=== PATIENT | male | born 1945 | race Caucasian/White ===

== ENCOUNTER 2018-01-14 08:46 | Inpatient (IN) | payer MEDICARE, OTHER ==
[~2018-01-14 08:46] MED LIST: Bisacodyl 5 MG Tab PO PRN; EPINEPHrine 1 MG/ML SDV ONE; Lidocaine 1% 2 ML ONE; Lidocaine 1%/Sod Bicarbonate in NS 8.4% 1 ML Syringe IDERM PRN; Magnesium Hydroxide 400 MG/5 ML Susp 30 ML Cup PO PRN; Morphine 2 MG/ML Syringe IVPUSH PRN; Naloxone 0.4 MG/ML SDV IVPUSH PRN; Ropivacaine 0.5% 5 MG/ML 30 ML SDV ONE; Sennosides 8.6 MG Tab PO PRN; Sodium Chloride 0.9% 10 ML Syringe FLUSH PRN
[2018-01-14] MEDS ORDERED: Propofol 200 MG/20 ML SDV ONE (09:03)
[2018-01-14] MEDS ORDERED: Lactated Ringers 1,000 ML ONE ×2 (09:03→14:05)
[2018-01-14] MEDS ORDERED: Rocuronium 50 MG/5 ML Vial ONE (09:03)
[2018-01-14] MEDS ORDERED: ceFAZolin 1 GM Vial ONE ×2 (09:03→10:21)
[2018-01-14] MEDS ORDERED: Dexamethasone 4 MG/ML SDV ONE (09:03)
[2018-01-14] MEDS ORDERED: fentaNYL 100 MCG/2 ML SDV ONE ×4 (09:03→13:16)
[2018-01-14] MEDS ORDERED: Ondansetron 4 MG/2 ML SDV ONE (09:03)
[2018-01-14] MEDS ORDERED: Acetaminophen 325 MG Tab PO ONE (09:45)
[2018-01-14] MEDS ORDERED: Pregabalin 25 MG Cap PO STA (09:47)
[2018-01-14] MEDS ORDERED: oxyCODONE ER 10 MG TAB.ER PO ONE (09:48)
[2018-01-14] MEDS: Lactated Ringers 1,000 ML IV SCH ×2 (10:15→14:52)
[2018-01-14] MEDS ORDERED: Iodine/Sodium Iodide 2% Tincture 30 ML Bottle ONE (10:21)
[2018-01-14] MEDS ORDERED: Bupivacaine 0.25% 30 ML SDV ONE (10:21)
[2018-01-14] MEDS ORDERED: Vancomycin 1 GM SDV ONE ×2 (10:21→11:51)
--- NOTE | 2018-01-14 10:23 | PCM.PREANE ---
Preanesthetic Assessment - Anesthesia/Transfusion/Family Hx Anesthesia History: Prior Anesthesia Without Reaction Family History of Anesthesia Reaction: No Transfusion History: No Prior Transfusion(s) Intubation History: Unknown - Review of Systems General: Weakness, Fatigue Pulmonary: No Symptoms (MARILOU with CPAP machine noted/Quit smoking in 1990.) Cardiovascular: No Symptoms (History of HTN) Gastrointestinal: No Symptoms (Occasional GERD with diet) Neurological: No Symptoms (chronic back pain), Numbness (left medial inner knee since back surgery in 2003.) Other: Reports: None (Chronic Renal Disease stage 3), Easy Bruising, Diabetes ( AM blood sugar at 1021= 134), Sinus Problem (allergic rhinits), Neck Pain (Neck fusion noted with slight tenderness with extension), Depression, Anxiety (PTSD) - Physical Assessment NPO Status Date: 01/13/18 NPO Status Time: 22:00 Pulse: 63 O2 Sat by Pulse Oximetry: 95 Respiratory Rate: 16 Blood Pressure: 139/62 Temperature: 36.9 C Height: 1.75 m Weight: 108.862 kg ASA Class: 3 Mental Status: Alert & Oriented x3 Dentition: Reports: Normal Dentition (poor dentition noted), Missing Tooth/Teeth , Caries Thyro-Mental Finger Breadths: 3 Mouth Opening Finger Breadths: 3 ROM/Head Extension: Limited/Partial Lungs: Clear to Auscultation, Normal Respiratory Effort Cardiovascular: Regular Rate, Regular Rhythm, No Murmurs - Lab Values: Laboratory Last Values MRSA (PCR) Negative 08/15/17 14:24 All lab values reviewed and noted and within acceptable ranges to proceed with scheduled procedure. - Imaging/EKG Impressions: EKG: NSR rate=71, left axis deviation, no significant changes found from comparison of ekg on 08/14/2017 - Allergies Allergies/Adverse Reactions: Allergies Allergy/AdvReac Type Severity Reaction Status Date / Time No Known Allergies Allergy Verified 01/11/18 12:32 - Anesthesia Plan Pre-Op Medication Ordered: None - Acknowledgements Anesthesia Type Planned: General Anesthesia (And left interscalene block under US guidance for post operative pain control requested by Dr. Hong.) Pt an Appropriate Candidate for the Planned Anesthesia: Yes Alternatives and Risks of Anesthesia Discussed w Pt/Guardian: Yes Pt/Guardian Understands and Agrees with Anesthesia Plan: Yes PreAnesthesia Questionnaire HEENT History: Reports: Hard of Hearing, Sinusitis Other HEENT History: open wound of nasal septum, has hearing aids, wont be bringing Cardiovascular History: Reports: High Cholesterol, Hypertension Respiratory History: Reports: Sleep Apnea Other Respiratory History: uses CPAP Gastrointestinal History: Reports: Diverticulosis Other Genitourinary History: CKD III,hypogonadism CLINIC COORDINATOR History: Reports: None Musculoskeletal History: Reports: Back Pain, Chronic Other Musculoskeletal History: shoulder pain, joinht pain, onychia and paronychia of toe, spondlydosis of lumbar sacral area, 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 Psychiatric History: Reports: Anxiety, Depression, PTSD Endocrine/Metabolic History: Reports: Diabetes, Type II, Obesity/BMI 30+ Other Endocrine/Metabolic History: hypogonadism Other Hematologic History: hyperkalemia Immunologic History: Reports: None Oncologic (Cancer) History: Reports: Basal Cell Carcinoma, Squamous Cell Carcinoma Other Dermatologic History: actinic keratosis - Past Surgical History HEENT Surgical History: Reports: Cataract Surgery, Naso-Sinus Surgery Cardiovascular Surgical History: Reports: None Respiratory Surgical History: Reports: None GI Surgical History: Reports: Appendectomy, Colonoscopy Female Surgical History: Reports: None Male Surgical History: Reports: None Endocrine Surgical History: Reports: None Neurological Surgical History: Reports: C-Spine, Lumbar Spine Musculoskeletal Surgical History: Reports: Knee Replacement - SUBSTANCE USE Smoking Status *Q: Former Smoker Second Hand Smoke Exposure: No Recreational Drug Use History: No - HOME MEDS Home Medications: Home Meds Doxazosin [Cardura] 2 mg PO BEDTIME 01/11/18 [History] Escitalopram [Lexapro] 10 mg PO DAILY 01/11/18 [History] Multivitamin [Flintstones] 1 tab PO DAILY 01/11/18 [History] Rosuvastatin Calcium [Crestor] 20 mg PO DAILY 01/11/18 [History] glipiZIDE [Glipizide Xl] 2.5 mg PO BID 01/11/18 [History] - CURRENT (IN HOUSE) MEDS Current Meds: Current Medications Aspirin (Ecotrin) 325 mg PO BID RONNIE Bisacodyl (Dulcolax) 5 mg PO DAILY PRN PRN Reason: Constipation Cyclobenzaprine HCl (Flexeril) 10 mg PO TID PRN PRN Reason: Spasms Docusate Sodium (Colace) 100 mg PO BID RONNIE Lactated Ringer's (Ringers, Lactated) 1,000 mls @ 125 mls/hr IV ASDIRECTED [facility] Stop: 01/14/18 23:00 Cefazolin Sodium/Dextrose 2 gm (/ Premix) 50 mls @ 100 mls/hr IV Q8H [facility] Stop: 01/14/18 23:29 Lidocaine/Sodium Bicarbonate (Buffered Lidocaine 1% In Ns 8.4%) 0.25 ml IDERM ONETIME PRN PRN Reason: Prior to IV Start Stop: 01/14/18 18:00 Magnesium Hydroxide (Milk Of Magnesia) 30 ml PO BID PRN PRN Reason: Constipation Morphine Sulfate (Morphine) 2 mg IVPUSH Q2H PRN PRN Reason: Breakthrough Pain Naloxone HCl (Narcan) 0.1 mg IVPUSH Q5M PRN PRN Reason: Oversedation Oxycodone/Acetaminophen (Percocet 325-5 Mg) 1 - 2 tab PO Q4H PRN PRN Reason: Pain Senna (Senna) 8.6 mg PO BID PRN PRN Reason: Constipation Sodium Chloride (Saline Flush) 10 ml FLUSH ASDIRECTED PRN PRN Reason: Keep Vein Open Stop: 01/14/18 18:00 Discontinued Medications Acetaminophen (Tylenol) 975 mg PO NOW ONE Stop: 01/14/18 09:46 Cefazolin Sodium (Ancef) Confirm Administered Dose 1 gm .ROUTE .STK-MED ONE Stop: 01/14/18 09:04 Dexamethasone (Dexamethasone) Confirm Administered Dose 4 mg .ROUTE .STK-MED ONE Stop: 01/14/18 09:04 Epinephrine HCl (Adrenalin) Confirm Administered Dose 1 mg .ROUTE .STK-MED ONE Stop: 01/14/18 07:11 Fentanyl (Sublimaze) Confirm Administered Dose 100 mcg .ROUTE .STK-MED ONE Stop: 01/14/18 09:04 Lidocaine HCl (Xylocaine-Mpf 1%) Confirm Administered Dose 2 mls @ as directed .ROUTE .STK-MED ONE Stop: 01/14/18 07:11 Lactated Ringer's (Ringers, Lactated) Confirm Administered Dose 1,000 mls @ as directed .ROUTE .STK-MED ONE Stop: 01/14/18 09:04 Ondansetron HCl (Zofran) Confirm Administered Dose 4 mg .ROUTE .STK-MED ONE Stop: 01/14/18 09:04 Oxycodone HCl (Oxycontin) 10 mg PO ONETIME ONE Stop: 01/14/18 09:49 Pregabalin (Lyrica) 50 mg PO NOW STA Stop: 01/14/18 09:48 Propofol (Diprivan 20 Ml) Confirm Administered Dose 200 mg .ROUTE .STK-MED ONE Stop: 01/14/18 09:04 Rocuronium [place] (Zemuron) Confirm Administered Dose 50 mg .ROUTE .STK-MED ONE Stop: 01/14/18 09:04 Ropivacaine (Naropin 0.5%) Confirm Administered Dose 30 ml .ROUTE .STK-MED ONE Stop: 01/14/18 07:11
[2018-01-14] MEDS ORDERED: Midazolam 1 MG/ML 2 ML SDV ONE (10:32)
[2018-01-14] MEDS ORDERED: Sodium Chloride 0.9% 0 ML ONE (11:52)
--- NOTE | 2018-01-14 11:52 | PCM.SN ---
- Free Text/Narrative Note: Anesthesia Note: (Left Interscalene Block Note) Date: 01/14/2018 Time Out: 1045 Start: 1045 Stop: 1110 Surgical Procedure: Left Total Shoulder Arthroplasty versus Reverse Total Shoulder Arthroplasty Diagnosis Left shoulder osteoarthritis Current Procedure: Left interscalene block under US guidance for postoperative pain control requested by Dr. Hong. Patient chart reviewed, risk/benefits discussed with patient, consent obtained. Patient positioned supine, monitors/alarms on, oxygen placed via nasal cannula at 2 LPM. IV sedation administered: Versed 2mg IV @ 1045, Fentanyl 50mcg IV @ 1045 Left shoulder prepped with two chloropreps. Sterile drapes placed with aseptic technique noted. Under US guidance, left subclavian artery visualized along with the left brachial plexus. Plexus followed up to C6 cricoid level, and area localized with 2mls of 1% lidocaine. 22gauge 2 inch stimiplex needle advanced under US with 0.6mV with stimulation of biceps noted. Good stimulation noted with decreased voltage and absent at 0.2mVs. 1ml of Normal Saline injected with loss of stimulation noted to confirm needle not placed intraneurally. Incremental dosing of 5mls with negative aspiration noted prior to each injection of 0.5% ropivacaine with 1:200,000 epinephrine. Total volume=30mls. Please refer to nurses noted for vital signs. Samantha Archuleta CRNA
[2018-01-14] MEDS ORDERED: Ondansetron 4 MG/2 ML SDV IVPUSH PRN ×2 (14:12→18:40)
[2018-01-14] MEDS ORDERED: fentaNYL 100 MCG/2 ML SDV IVPUSH PRN (14:12)
--- NOTE | 2018-01-14 14:12 | PCM.POSTAN ---
POST ANESTHESIA ASSESSMENT - MENTAL STATUS Mental Status: Alert, Oriented - VITAL SIGNS Pulse Rate: 111 SaO2: 94 Resp Rate: 16 Blood Pressure: 131/59 Temperature: 36.3 C - RESPIRATORY Respiratory Status: Respiratory Rate WNL, Airway Patent, O2 Saturation Stable, Supplemental Oxygen - CARDIOVASCULAR CV Status: Pulse Rate WNL, Blood Pressure Stable - GASTROINTESTINAL GI Status: No Symptoms - PAIN Pain Score: 0 - POST OP HYDRATION Hydration Status: Adequate & Stable
--- NOTE | 2018-01-14 15:15 | CR ---
Left shoulder: Five fluoroscopic spot views were obtained of the left shoulder utilizing C-arm device. Comparison: No prior left shoulder exam. Left shoulder prosthesis is seen. Components are aligned. Underlying bony structures are grossly intact. Fluoroscopy time given as 7.1 seconds. Impression: 1. Procedural study showing placement of left shoulder prosthesis. Diagnostic code #2
--- NOTE | 2018-01-14 15:15 | CR ---
Left shoulder: Single portable view of the left shoulder was obtained. Comparison: Prior intraoperative study performed on the same day. Left shoulder prosthesis is seen. Components are aligned. Soft tissue air is noted from the surgical procedure. Underlying bony structures are intact. Previous cervical spine surgery is noted. Impression: 1. Recently placed left shoulder prosthesis. Incidental previous cervical spine surgery. 2. No acute bony abnormality is seen. Diagnostic code #2
[2018-01-14] MEDS ORDERED: Ondansetron 4 MG in Sodium Chloride 0.9% 50 ML IV PRN (15:40)
[2018-01-14] MEDS: ceFAZolin 2 GM in Premix Bag 1 BAG IV SCH ×2 (17:25→17:32)
[2018-01-14] MEDS ORDERED: Doxazosin 2 MG Tab PO SCH (21:00)
[2018-01-14] MEDS: Docusate Sodium 100 MG Cap PO SCH (21:19)
[2018-01-14] MEDS: glipiZIDE 2.5 MG Tab.ER PO SCH (21:19)
[2018-01-14] MEDS: Acetaminophen/oxyCODONE 325-5 MG Tab PO PRN (21:20)
[2018-01-14] MEDS: Cyclobenzaprine 10 MG Tab PO PRN (23:28)
[2018-01-15] MEDS ORDERED: Ketorolac 15 MG/ML SDV IVPUSH ONE (00:21)
[2018-01-15] MEDS: oxyCODONE 5 MG Tab PO PRN ×3 (00:33→14:13)
[2018-01-15] MEDS: ceFAZolin 2 GM in Premix Bag 1 BAG IV SCH ×2 (01:36→09:33)
[2018-01-15] MEDS: Acetaminophen/oxyCODONE 325-5 MG Tab PO PRN ×2 (06:02→10:14)
--- NOTE | 2018-01-15 06:42 | PCM.CONS ---
H&P History of Present Illness - General Date of Service: 01/15/18 Admit Problem/Dx: Admission Diagnosis/Problem Admission Diagnosis/Problem Osteoarthritis of shoulder Source of Information: Patient, Old Records, Provider, RN History Limitations: Reports: No Limitations - History of Present Illness Initial Comments - Free Text/Narative: Abbi Salazar (Vinnie) is a 72 yo male patient of Dr. Hong who is post- operative day 1 of left reverse total shoulder arthroplasty. Hospital medicine was consulted for post-operative medical care. At this time he is resting comfortably in bed. Pain is controlled and he just received a pain pill. He denies any chest pain, shortness of breath, palpitations, nausea, or vomiting. He carries a history of: HLD, HTN, Sleep apnea on home CPAP, CKD stage III, hypogonadism, chronic back pain, DJD L5 to S1, chronic neck pain, anxiety, depression, PTSD, Type II DM, Obesity, basal and squamous cell carcinoma. He is a former smoker. He is a full code. His [facility] care [facility]. Left Arm Pain Score (Numeric/FACES): 6 - Related Data Allergies/Adverse Reactions: Allergies Allergy/AdvReac Type Severity Reaction Status Date / Time No Known Allergies Allergy Verified 01/11/18 12:32 Home Medications: Home Meds Doxazosin [Cardura] 2 mg PO BEDTIME 01/11/18 [History] Escitalopram [Lexapro] 10 mg PO DAILY 01/11/18 [History] Rosuvastatin Calcium [Crestor] 20 mg PO DAILY 01/11/18 [History] glipiZIDE [Glipizide Xl] 2.5 mg PO BID 01/11/18 [History] Acetaminophen/oxyCODONE [Percocet 325-5 MG] 1 - 2 tab PO Q6H PRN #60 tablet 06/25 [Rx] Aspirin [Ecotrin] 325 mg PO BID #84 tab.ec 01/14/18 [Rx] Bisacodyl [Dulcolax] 5 mg PO DAILY PRN tablet 01/14/18 [Rx] Cyclobenzaprine [Flexeril] 10 mg PO TID PRN #40 tablet 01/14/18 [Rx] Docusate Sodium [Colace] 100 mg PO BID cap 01/14/18 [Rx] Magnesium Hydroxide [Milk of Magnesia] 30 ml PO BID PRN cup 01/14/18 [Rx] Sennosides [Senna] 8.6 mg PO BID PRN tablet 01/14/18 [Rx] oxyCODONE 5 mg PO Q6H PRN #20 tablet 01/15/18 [Rx] Past Medical History HEENT History: Reports: Hard of Hearing, Sinusitis Other HEENT History: open wound of nasal septum, has hearing aids, not here Cardiovascular History: Reports: High Cholesterol, Hypertension Respiratory History: Reports: Sleep Apnea Other Respiratory History: uses CPAP Gastrointestinal History: Reports: Diverticulosis Other Genitourinary History: CKD III,hypogonadism RAISE MINER History: Reports: None Musculoskeletal History: Reports: Back Pain, Chronic Other Musculoskeletal History: shoulder pain, joinht pain, onychia and paronychia of toe, spondlydosis of lumbar sacral area, 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 Neurological History: Reports: Neuropathy, Diabetic Psychiatric History: Reports: Anxiety, Depression, PTSD Endocrine/Metabolic History: Reports: Diabetes, Type II, Obesity/BMI 30+ Other Endocrine/Metabolic History: hypogonadism Hematologic History: Reports: Other (See Below) Other Hematologic History: hyperkalemia Immunologic History: Reports: None Oncologic (Cancer) History: Reports: Basal Cell Carcinoma, Squamous Cell Carcinoma Dermatologic History: Reports: None Other Dermatologic History: actinic keratosis - Past Surgical History HEENT Surgical History: Reports: Cataract Surgery, Naso-Sinus Surgery Cardiovascular Surgical History: Reports: None Respiratory Surgical History: Reports: None GI Surgical History: Reports: Appendectomy, Colonoscopy Male Surgical History: Reports: None Endocrine Surgical History: Reports: None Neurological Surgical History: Reports: C-Spine, Lumbar Spine Musculoskeletal Surgical History: Reports: Knee Replacement Other Musculoskeletal Surgeries/Procedures:: right knee replaced and left knee replaced twice Social & Family History - Family History Cardiac: Reports: MD, Other (See Below) Other Cardiac Family History: Fluid around heart - siblings Neurological: Reports: Alzheimers Disease - Tobacco Use Smoking Status *Q: Former Smoker Years of Tobacco use: 35 Used Tobacco, but Quit: Yes Month/Year Tobacco Last Used: 1990 Second Hand Smoke Exposure: No - Caffeine Use Caffeine Use: Reports: Coffee, Soda, Tea - Recreational Drug Use Recreational Drug Use: No Drug Use in Last 12 Months: No H&P Review of Systems - Review of Systems: Review Of Systems: See Below General: Reports: No Symptoms HEENT: Reports: No Symptoms Pulmonary: Reports: No Symptoms Cardiovascular: Reports: No Symptoms Gastrointestinal: Reports: No Symptoms Genitourinary: Reports: No Symptoms Musculoskeletal: Reports: Arm Pain, Joint Pain Skin: Reports: No Symptoms Psychiatric: Reports: No Symptoms Neurological: Reports: No Symptoms Hematologic/Lymphatic: Reports: No Symptoms Immunologic: Reports: No Symptoms Exam - Exam Exam: See Below - Vital Signs Vital Signs: Last Vital Signs Temp 98.1 F 01/15/18 05:02 Pulse 85 01/15/18 05:02 Resp 16 01/15/18 05:02 BP 108/64 01/15/18 05:02 Pulse Ox 93 L 01/15/18 05:02 Weight: 240 lb - Exam Quality Assessment: DVT Prophylaxis General: Alert, Oriented, Cooperative HEENT: Conjunctiva Clear, EACs Clear, EOMI, Hearing Intact, Mucosa Moist & [place] , Nares Patent, Posterior Pharynx Clear, PERRLA Neck: Supple, Trachea Midline Lungs: Clear to Auscultation, Normal Respiratory Effort Cardiovascular: Regular Rate, Regular Rhythm GI/Abdominal Exam: Normal Bowel Sounds, Soft, Non-Tender, No Organomegaly, No Distention, No Abnormal Bruit, No Mass, Pelvis Stable (Male) Exam: Deferred Rectal (Males) Exam: Deferred Back Exam: Normal Inspection, Full Range of Motion Extremities: No Pedal Edema, Normal Capillary Refill, Limited Range of Motion, Other (Immobilizer in place on left shoulder. Badage in place - dry and intact. Cooling pack in place ) Peripheral Pulses: 1+: Posterior Tibial (L), Posterior Tibial (R), Dorsalis Pedis (L), Dorsalis Pedis (R), 2+: Radial (L), Radial (R) Skin: Warm, Dry, Intact Neurological: Cranial Nerves Intact (grossly) Neuro Extensive - Mental Status: Alert, Oriented x3, Normal Mood/Affect, Normal Cognition, Memory Intact Psychiatric: Alert, Normal Affect, Normal Mood - Patient Data Lab Results Last 24 hrs: Laboratory Results - last 24 hr 01/14/18 01/14/18 01/14/18 Range/Units 10:21 10:24 10:24 WBC (4.23-9.07) K/mm3 RBC (4.63-6.08) M/mm3 Hgb (13.7-17.5) gm/L Hct (40.1-51.0) % MCV (79.0-92.2) fl MCH (25.7-32.2) pg MCHC (32.2-35.5) g/dl RDW Std Deviation (35.1-43.9) fL Plt Count (163-337) K/mm3 MPV (9.4-12.3) fl PT 10.8 (9.5-12.1) SECONDS INR 0.99 APTT 33 H (24-31) SECONDS POC Glucose 134 H (80-115) mg/dL 01/15/18 Range/Units 05:08 WBC 7.26 (4.23-9.07) K/mm3 RBC 4.23 L (4.63-6.08) M/mm3 Hgb 12.6 L (13.7-17.5) gm/L Hct 40.0 L (40.1-51.0) % MCV 94.6 H (79.0-92.2) fl MCH 29.8 (25.7-32.2) pg MCHC 31.5 L (32.2-35.5) g/dl RDW Std Deviation 48.2 H (35.1-43.9) fL Plt Count 177 (163-337) K/mm3 MPV 11.2 (9.4-12.3) fl PT (9.5-12.1) SECONDS INR APTT (24-31) SECONDS POC Glucose (80-115) mg/dL Result Diagrams: 01/15/18 05:08 01/15/18 05:08 Consult PN Assessment/Plan POD#: 1 Procedures: Procedures C-REACTIVE PROTEIN (02/01/16) CHEST X-RAY 2VW FRONTAL&LATL (08/07/16) COMPLETE CBC W/AUTO DIFF WBC (08/07/16) COMPREHEN METABOLIC PANEL (08/07/16) EXTREMITY STUDY (12/28/15) GAIT TRAINING THERAPY (08/07/16) GLUCOSE BLOOD TEST (08/07/16) MEASURE BLOOD OXYGEN LEVEL (08/07/16) METABOLIC PANEL TOTAL CA (08/07/16) MR-STAPH DNA AMP PROBE (12/28/17) MRI JNT OF LWR EXTRE W/O DYE (06/20/17) OT EVALUATION (08/07/16) PT EVALUATION (08/07/16) RBC SED RATE AUTOMATED (02/01/16) ROUTINE VENIPUNCTURE (08/07/16) SELF CARE MNGMENT TRAINING (08/07/16) THERAPEUTIC EXERCISES (08/07/16) THROMBOPLASTIN TIME PARTIAL (08/02/16) URINALYSIS AUTO W/SCOPE (08/07/16) URINE CULTURE/COLONY COUNT (08/07/16) X-RAY EXAM OF KNEE 1 OR 2 (08/07/16) (1) S/p reverse total shoulder arthroplasty SNOMED Code(s): 842133952, 927551851 Code(s): Z96.619 - PRESENCE OF UNSPECIFIED ARTIFICIAL SHOULDER JOINT Priority: High Current Visit: Yes Qualifiers: Laterality: left Qualified Code(s): Z96.612 - Presence of left artificial shoulder joint (2) Osteoarthritis SNOMED Code(s): 491023173 Code(s): M19.90 - UNSPECIFIED OSTEOARTHRITIS, UNSPECIFIED SITE Priority: High Current Visit: Yes Qualifiers: Osteoarthritis location: shoulder Osteoarthritis type: primary Laterality : left Qualified Code(s): M19.012 - Primary osteoarthritis, left shoulder (3) Sleep apnea treated with nocturnal BiPAP SNOMED Code(s): 51098852 Code(s): G47.33 - OBSTRUCTIVE SLEEP APNEA (ADULT) (PEDIATRIC) Priority: Medium Current Visit: Yes (4) HLD (hyperlipidemia) SNOMED Code(s): 21667606 Code(s): E78.5 - HYPERLIPIDEMIA, UNSPECIFIED Priority: Low Current Visit : No Qualifiers: Hyperlipidemia type: unspecified Qualified Code(s): E78.5 - Hyperlipidemia , unspecified (5) HTN (hypertension) SNOMED Code(s): 43269374 Code(s): I10 - ESSENTIAL (PRIMARY) HYPERTENSION Priority: Medium Current Visit: No Qualifiers: Hypertension type: unspecified Qualified Code(s): I10 - Essential (primary ) hypertension (6) Chronic back pain SNOMED Code(s): 629743791 Code(s): M54.9 - DORSALGIA, UNSPECIFIED; G89.29 - OTHER CHRONIC PAIN Priority: Low Current Visit: No Qualifiers: Back pain location: back pain in unspecified location Back pain laterality : unspecified Qualified Code(s): M54.9 - Dorsalgia, unspecified; G89.29 - Other chronic pain (7) Anxiety SNOMED Code(s): 01956988 Code(s): F41.9 - ANXIETY DISORDER, UNSPECIFIED Priority: Low Current Visit: No (8) Other specified depressive episodes SNOMED Code(s): 17601444 Code(s): F32.89 - OTHER SPECIFIED DEPRESSIVE EPISODES Priority: Low Current Visit: No (9) PTSD (post-traumatic stress disorder) SNOMED Code(s): 73359805 Code(s): F43.10 - POST-TRAUMATIC STRESS DISORDER, UNSPECIFIED Priority: Low Current Visit: No (10) CKD (chronic kidney disease) stage 3, GFR 30-59 ml/min SNOMED Code(s): 381905498 Code(s): N18.3 - CHRONIC KIDNEY DISEASE, STAGE 3 (MODERATE) Priority: Medium Current Visit: No (11) MARILOU (obstructive sleep apnea) SNOMED Code(s): 48219636 Code(s): G47.33 - OBSTRUCTIVE SLEEP APNEA (ADULT) (PEDIATRIC) Priority: Medium Current Visit: No Problem List Initiated/Reviewed/Updated: Yes Plan: I/P: Acute: S/P left total reveres total shoulder arthroplasty - post-operative day 1 -DVT prophylaxis and pain management per primary care team -PT/OT -IS/RT -Monitor oxygen saturation -Titrate oxygen as needed -Vital signs stable -Monitor labs -Pre-operative Hgb was 14.2, now 12.6 -Pre-operative GFR wsa 50, now 40 -Pre-operative A1C was 7 Osteoarthritis of left shoulder -Pain management per primary care team Chronic: HLD HTN Sleep apnea on home CPAP CKD stage III hypogonadism chronic back pain DJD L5 to S1 chronic neck pain anxiety depression PTSD Type II DM Obesity Basal and squamous cell carcinoma Plan: CM for discharge planning GI prophylaxis Home medications as indicated Other orders as listed above Routine AM labs He is a full code. His PCP is Dr. Sinclair with the [facility] He is doing well today. He has been working with PT/OT and doing well. He has urinated. Pain is controlled. From a hospitalist standpoint he is doing well and clear for discharge pending primary care team approval. Thank you for allowing us to participate in the care of this patient!! Requesting Provider: Dr. Hong Date Consult Requested: 01/14/18 Reason for Consult: Post-operative medical care Patient History Reviewed: Yes Admission H&P Reviewed: Yes
[2018-01-15] MEDS: Docusate Sodium 100 MG Cap PO SCH (08:47)
[2018-01-15] MEDS: glipiZIDE 2.5 MG Tab.ER PO SCH (08:47)
[2018-01-15] MEDS ORDERED: Citalopram 20 MG Tab PO SCH (09:00)
[2018-01-15] MEDS ORDERED: Aspirin 325 MG Tab.EC PO SCH (09:00)
[2018-01-15] MEDS ORDERED: Rosuvastatin 10 MG Tab PO SCH (09:00)
[2018-01-15] MEDS: Cyclobenzaprine 10 MG Tab PO PRN (09:32)
--- NOTE | 2018-01-15 10:15 | PCM48HPAN ---
Post Anesthesia Note - EVALUATION WITHIN 48HRS OF ANESTHETIC Vital Signs in Normal Range: Yes Patient Participated in Evaluation: Yes Respiratory Function Stable: Yes Airway Patent: Yes Cardiovascular Function Stable: Yes Hydration Status Stable: Yes Pain Control Satisfactory: Yes (States had a lot of pain last night. Better today) Nausea and Vomiting Control Satisfactory: Yes (Some nausea last night. None today. No emesis) Mental Status Recovered: Yes Pulse Rate: 92 Resp Rate: 16 Temperature: 98.4 F Blood Pressure: 129/69
[2018-01-15 16:37] VITALS: BP 134/70
--- NOTE | 2018-01-16 10:51 | PCM.SURGPN ---
- General Info Date of Service: 01/15/18 POD#: 1 Functional Status: Reports: Pain Controlled, Tolerating Diet, Ambulating, Urinating, Incentive Spirometry - Review of Systems Musculoskeletal: Reports: Other (The pt has met inpatient therapy goals.) - Patient Data Vitals - Most Recent: Last Vital Signs Temp 98.8 F 01/15/18 13:08 Pulse 90 01/15/18 14:12 Resp 14 01/15/18 13:08 BP 134/70 01/15/18 14:12 Pulse Ox 91 L 01/15/18 14:12 Weight - Most Recent: 240 lb Med Orders - Current: Current Medications Discontinued Medications Acetaminophen (Tylenol) 975 mg PO NOW ONE Stop: 01/14/18 09:46 Last Admin: 01/14/18 10:48 Dose: 975 mg Aspirin (Ecotrin) 325 mg PO BID [facility] Last Admin: 01/15/18 08:46 Dose: 325 mg Bisacodyl (Dulcolax) 5 mg PO DAILY PRN PRN Reason: Constipation Bupivacaine HCl (Marcaine 0.25%) Confirm Administered Dose 30 ml .ROUTE .STK- MED ONE Stop: 01/14/18 10:22 Last Admin: 01/14/18 13:47 Dose: 16 ml Cefazolin Sodium (Ancef) Confirm Administered Dose 1 gm .ROUTE .STK-MED ONE Stop: 01/14/18 09:04 Cefazolin Sodium (Ancef) Confirm Administered Dose 2 gm .ROUTE .STK-MED ONE Stop: 01/14/18 10:22 Last Admin: 01/14/18 13:29 Dose: 2 gm Citalopram Hydrobromide (Celexa) 20 mg PO DAILY [facility] Last Admin: 01/15/18 08:47 Dose: 20 mg Cyclobenzaprine HCl (Flexeril) 10 mg PO TID PRN PRN Reason: Spasms Last Admin: 01/15/18 09:32 Dose: 10 mg Dexamethasone (Dexamethasone) Confirm Administered Dose 4 mg .ROUTE .STK-MED ONE Stop: 01/14/18 09:04 Docusate Sodium (Colace) 100 mg PO BID [facility] Last Admin: 01/15/18 08:47 Dose: 100 mg Doxazosin Mesylate (Cardura) 2 mg PO BEDTIME [facility] Last Admin: 01/14/18 21:19 Dose: 2 mg Epinephrine HCl (Adrenalin) Confirm Administered Dose 1 mg .ROUTE .STK-MED ONE Stop: 01/14/18 07:11 Fentanyl (Sublimaze) Confirm Administered Dose 100 mcg .ROUTE .STK-MED ONE Stop: 01/14/18 09:04 Fentanyl (Sublimaze) Confirm Administered Dose 100 mcg .ROUTE .STK-MED ONE Stop: 01/14/18 10:33 Fentanyl (Sublimaze) Confirm Administered Dose 100 mcg .ROUTE .STK-MED ONE Stop: 01/14/18 13:03 Fentanyl (Sublimaze) Confirm Administered Dose 100 mcg .ROUTE .STK-MED ONE Stop: 01/14/18 13:17 Fentanyl (Sublimaze) 50 mcg IVPUSH Q5M PRN PRN Reason: pain Stop: 01/14/18 16:00 Glipizide (Glucotrol Xl) 2.5 mg PO BID [facility] Last Admin: 01/15/18 08:47 Dose: 2.5 mg Lactated Ringer's (Ringers, Lactated) 1,000 mls @ 125 mls/hr IV ASDIRECTED [facility] Stop: 01/14/18 23:00 Last Admin: 01/14/18 14:52 Dose: 125 mls/hr Cefazolin Sodium/Dextrose 2 gm (/ Premix) 50 mls @ 100 mls/hr IV Q8H [facility] Stop: 01/15/18 10:59 Last Admin: 01/15/18 09:33 Dose: 100 mls/hr Lidocaine HCl (Xylocaine-Mpf 1%) Confirm Administered Dose 2 mls @ as directed .ROUTE .ST-MED ONE Stop: 01/14/18 07:11 Lactated Ringer's (Ringers, Lactated) Confirm Administered Dose 1,000 mls @ as directed .ROUTE .ST-MED ONE Stop: 01/14/18 09:04 Sodium Chloride (Normal Saline) Confirm Administered Dose 0 mls @ as directed .ROUTE .STK-MED ONE Stop: 01/14/18 11:53 Lactated Ringer's (Ringers, Lactated) Confirm Administered Dose 1,000 mls @ as directed .ROUTE .STK-MED ONE Stop: 01/14/18 14:06 Ondansetron HCl 4 mg/ Sodium (Chloride) 52 mls @ 100 mls/hr IV Q6H PRN PRN Reason: Nausea Iodine (Iodine 2% Mild Tincture) Confirm Administered Dose 30 ml .ROUTE .STK- MED ONE Stop: 01/14/18 10:22 Last Admin: 01/14/18 13:26 Dose: 18 ml Ketorolac Tromethamine (Toradol) 15 mg IVPUSH ONETIME ONE Stop: 01/15/18 00:22 Last Admin: 01/15/18 00:32 Dose: 15 mg Lidocaine/Sodium Bicarbonate (Buffered Lidocaine 1% In Ns 8.4%) 0.25 ml IDERM ONETIME PRN PRN Reason: Prior to IV Start Stop: 01/14/18 18:00 Last Admin: 01/14/18 10:14 Dose: 0.25 ml Magnesium Hydroxide (Milk Of Magnesia) 30 ml PO BID PRN PRN Reason: Constipation Midazolam HCl (Versed 1 Mg/Ml) Confirm Administered Dose 2 mg .ROUTE .STK-MED ONE Stop: 01/14/18 10:33 Morphine Sulfate (Morphine) 2 mg IVPUSH Q2H PRN PRN Reason: Breakthrough Pain Last Admin: 01/14/18 23:28 Dose: 2 mg Naloxone HCl (Narcan) 0.1 mg IVPUSH Q5M PRN PRN Reason: Oversedation Ondansetron HCl (Zofran) Confirm Administered Dose 4 mg .ROUTE .STK-MED ONE Stop: 01/14/18 09:04 Ondansetron HCl (Zofran) 4 mg IVPUSH ONETIME PRN PRN Reason: Nausea/Vomiting Stop: 01/14/18 18:00 Ondansetron HCl (Zofran) 4 mg IVPUSH Q6H PRN PRN Reason: NAUSEA Last Admin: 01/15/18 00:16 Dose: 4 mg Oxycodone HCl (Oxycontin) 10 mg PO ONETIME ONE Stop: 01/14/18 09:49 Last Admin: 01/14/18 10:48 Dose: 10 mg Oxycodone HCl (Oxycodone) 5 mg PO Q6H PRN PRN Reason: Pain (severe 7-10) Last Admin: 01/15/18 14:13 Dose: 5 mg Oxycodone/Acetaminophen (Percocet 325-5 Mg) 1 - 2 tab PO Q4H PRN PRN Reason: Pain Last Admin: 01/15/18 10:14 Dose: 2 tab Pregabalin (Lyrica) 50 mg PO NOW STA Stop: 01/14/18 09:48 Last Admin: 01/14/18 10:48 Dose: 50 mg Propofol (Diprivan 20 Ml) Confirm Administered Dose 200 mg .ROUTE .STK-MED ONE Stop: 01/14/18 09:04 Rocuronium [place] (Zemuron) Confirm Administered Dose 50 mg .ROUTE .STK-MED ONE Stop: 01/14/18 09:04 Ropivacaine (Naropin 0.5%) Confirm Administered Dose 30 ml .ROUTE .STK-MED ONE Stop: 01/14/18 07:11 Rosuvastatin Calcium (Crestor) 20 mg PO DAILY [facility] Last Admin: 01/15/18 08:47 Dose: 20 mg Senna (Senna) 8.6 mg PO BID PRN PRN Reason: Constipation Sodium Chloride (Saline Flush) 10 ml FLUSH ASDIRECTED PRN PRN Reason: Keep Vein Open Stop: 01/14/18 18:00 Tranexamic Acid (Cyklokapron) Confirm Administered Dose 1,000 mg .ROUTE .STK- MED ONE Stop: 01/14/18 10:21 Last Admin: 01/14/18 13:25 Dose: 1,000 mg Vancomycin HCl (Vancomycin) Confirm Administered Dose 1 gm .ROUTE .STK-MED ONE Stop: 01/14/18 10:22 Last Admin: 01/14/18 13:45 Dose: 1 gm Vancomycin HCl (Vancomycin) Confirm Administered Dose 1 gm .ROUTE .STK-MED ONE Stop: 01/14/18 11:52 - Exam Wound/Incisions: Dressing Dry and Intact General: Alert, Cooperative, No Acute Distress Lungs: Normal Respiratory Effort Extremities: Other (NVS intact for BUE. Manuel's negative BLE.) - Problem List Review Problem List Initiated/Reviewed/Updated: Yes - Assessment Assessment (Free Text/Narrative):: POD#1 - left reverse TSA - Plan Plan (Free Text/Narrative):: 1. Discharge to home today. 2. Outpatient therapy. 3. 325mg ASA BID, TEDs, frequent mobility. 4. Hgb 12.6. f/u with PCP re: renal function - creat 1.7 today. The pt's case was discussed with Dr. Hong.
--- NOTE | 2018-01-16 10:53 | PCM.DCSUM1 ---
Discharge Summary - Hospital Course Brief History: Abbi is a 72 yo male who underwent left reverse TSA with Dr. Hong on 01-14-2018. The procedure was completed under general anesthesia with regional block. The pt tolerated the procedure well and was admitted to the Medical-Surgical Unit. Medical management was provided by the Hospitalist service. The pt's Hospital course was uneventful. The pt's Hgb on POD#1 was 12.6. On POD#1, 325mg ASA BID was initiated for VTE prophylaxis. SCDs and TEDs were also ordered. A Mepilex dressing was placed at the incision site at the time of surgery and remained clean and dry. The pt participated in P.T. and O.T. and progressed well. On POD#1, the pt was deemed appropriate to discharge to home with his . - Discharge Data Discharge Date: 01/15/18 Discharge Disposition: Home, Self-Care 01 Condition: Good - Patient Summary/Data Consults: Consultations 01/14/18 06:56 OT Evaluation and Treatment [CONS] Routine PT Evaluation and Treatment [CONS] Routine 01/14/18 06:57 Consult to Physician [CONS] Routine - Patient Instructions Diet: Usual Diet as Tolerated Activity: Apply Ice, As Tolerated, Elevate Extremity Driving: Do Not Drive Showering/Bathing: May Shower Wound/Incision Care: Keep Operative Site/Wound Site Clean and Dry, Do NOT Change Dressing Notify Provider of: Fever, Increased Pain, Swelling and Redness, Drainage, Nausea and/or Vomiting Other/Special Instructions: Please get up and moving around every hour while awake. This helps to prevent blood clots. Please take 325mg aspirin twice daily - this also helps to prevent blood clots. The medication is being used for blood clot prevention and not for pain control, so please use the medication twice daily as directed. Please wear the JOSE hose during the day and you may remove them at night. Please schedule for therapy. Complete the therapy exercises and stretches that were instructed in the Hospital. Please use the pain medication and muscle relaxant as needed. The medication may cause drowsiness and/or constipation. You could use a stool softener like docusate sodium or Colace 100mg twice daily and/or a laxative like Miralax daily for constipation. Contact your primary care provider for further instructions if you are constipated. Try to wean from use of the pain medication as soon as able. Use the incentive spirometer often. Please place ice to the shoulder often. Please elevate the limb to decrease swelling. Wear the immobilizer as directed. Keep the Mepilex dressing in place until follow- up. Please notify the Clinic if the dressing is saturated or rolls down. Please monitor your blood sugars very closely and notify your primary care provider with abnormal values. Please schedule an appointment with your Primary Care Provider to ensure that your kidney tests are improving. You value was elevated a bit during your Hospital stay. Please call [phone] with questions or concerns. - Discharge Plan Prescriptions/Med Rec: Acetaminophen/oxyCODONE [Percocet 325-5 MG] 1 - 2 tab PO Q6H PRN #60 tablet PRN Reason: Pain Aspirin [Ecotrin] 325 mg PO BID #84 tab.ec Cyclobenzaprine [Flexeril] 10 mg PO TID PRN #40 tablet PRN Reason: Spasms oxyCODONE 5 mg PO Q6H PRN #20 tablet PRN Reason: Pain Home Medications: Home Meds Doxazosin [Cardura] 2 mg PO BEDTIME 01/11/18 [History] Escitalopram [Lexapro] 10 mg PO DAILY 01/11/18 [History] Rosuvastatin Calcium [Crestor] 20 mg PO DAILY 01/11/18 [History] glipiZIDE [Glipizide Xl] 2.5 mg PO BID 01/11/18 [History] Acetaminophen/oxyCODONE [Percocet 325-5 MG] 1 - 2 tab PO Q6H PRN #60 tablet 06/25 [Rx] Aspirin [Ecotrin] 325 mg PO BID #84 tab.ec 01/14/18 [Rx] Bisacodyl [Dulcolax] 5 mg PO DAILY PRN tablet 01/14/18 [Rx] Cyclobenzaprine [Flexeril] 10 mg PO TID PRN #40 tablet 01/14/18 [Rx] Docusate Sodium [Colace] 100 mg PO BID cap 01/14/18 [Rx] Magnesium Hydroxide [Milk of Magnesia] 30 ml PO BID PRN cup 01/14/18 [Rx] Sennosides [Senna] 8.6 mg PO BID PRN tablet 01/14/18 [Rx] oxyCODONE 5 mg PO Q6H PRN #20 tablet 01/15/18 [Rx] Referrals: Gladis Dunn PA-C [Physician [employer] Solar Technician] - 01/22/18 1:45 am (Please follow-up with Dr. Hong/Trinidad Dunn on SundayJanuary 22 at 0145pm. the next scheduled appointment is on SundayJanuary 29 at 0145pm. ) - Patient Data Vitals - Most Recent: Last Vital Signs Temp 98.8 F 01/15/18 13:08 Pulse 90 01/15/18 14:12 Resp 14 01/15/18 13:08 BP 134/70 01/15/18 14:12 Pulse Ox 91 L 01/15/18 14:12 Weight - Most Recent: 240 lb Med Orders - Current: Current Medications Discontinued Medications Acetaminophen (Tylenol) 975 mg PO NOW ONE Stop: 01/14/18 09:46 Last Admin: 01/14/18 10:48 Dose: 975 mg Aspirin (Ecotrin) 325 mg PO BID [facility] Last Admin: 01/15/18 08:46 Dose: 325 mg Bisacodyl (Dulcolax) 5 mg PO DAILY PRN PRN Reason: Constipation Bupivacaine HCl (Marcaine 0.25%) Confirm Administered Dose 30 ml .ROUTE .STK- MED ONE Stop: 01/14/18 10:22 Last Admin: 01/14/18 13:47 Dose: 16 ml Cefazolin Sodium (Ancef) Confirm Administered Dose 1 gm .ROUTE .STK-MED ONE Stop: 01/14/18 09:04 Cefazolin Sodium (Ancef) Confirm Administered Dose 2 gm .ROUTE .STK-MED ONE Stop: 01/14/18 10:22 Last Admin: 01/14/18 13:29 Dose: 2 gm Citalopram Hydrobromide (Celexa) 20 mg PO DAILY [facility] Last Admin: 01/15/18 08:47 Dose: 20 mg Cyclobenzaprine HCl (Flexeril) 10 mg PO TID PRN PRN Reason: Spasms Last Admin: 01/15/18 09:32 Dose: 10 mg Dexamethasone (Dexamethasone) Confirm Administered Dose 4 mg .ROUTE .STK-MED ONE Stop: 01/14/18 09:04 Docusate Sodium (Colace) 100 mg PO BID [facility] Last Admin: 01/15/18 08:47 Dose: 100 mg Doxazosin Mesylate (Cardura) 2 mg PO BEDTIME [facility] Last Admin: 01/14/18 21:19 Dose: 2 mg Epinephrine HCl (Adrenalin) Confirm Administered Dose 1 mg .ROUTE .STK-MED ONE Stop: 01/14/18 07:11 Fentanyl (Sublimaze) Confirm Administered Dose 100 mcg .ROUTE .STK-MED ONE Stop: 01/14/18 09:04 Fentanyl (Sublimaze) Confirm Administered Dose 100 mcg .ROUTE .STK-MED ONE Stop: 01/14/18 10:33 Fentanyl (Sublimaze) Confirm Administered Dose 100 mcg .ROUTE .STK-MED ONE Stop: 01/14/18 13:03 Fentanyl (Sublimaze) Confirm Administered Dose 100 mcg .ROUTE .STK-MED ONE Stop: 01/14/18 13:17 Fentanyl (Sublimaze) 50 mcg IVPUSH Q5M PRN PRN Reason: pain Stop: 01/14/18 16:00 Glipizide (Glucotrol Xl) 2.5 mg PO BID [facility] Last Admin: 01/15/18 08:47 Dose: 2.5 mg Lactated Ringer's (Ringers, Lactated) 1,000 mls @ 125 mls/hr IV ASDIRECTED [facility] Stop: 01/14/18 23:00 Last Admin: 01/14/18 14:52 Dose: 125 mls/hr Cefazolin Sodium/Dextrose 2 gm (/ Premix) 50 mls @ 100 mls/hr IV Q8H [facility] Stop: 01/15/18 10:59 Last Admin: 01/15/18 09:33 Dose: 100 mls/hr Lidocaine HCl (Xylocaine-Mpf 1%) Confirm Administered Dose 2 mls @ as directed .ROUTE .STK-MED ONE Stop: 01/14/18 07:11 Lactated Ringer's (Ringers, Lactated) Confirm Administered Dose 1,000 mls @ as directed .ROUTE .STK-MED ONE Stop: 01/14/18 09:04 Sodium Chloride (Normal Saline) Confirm Administered Dose 0 mls @ as directed .ROUTE .STK-MED ONE Stop: 01/14/18 11:53 Lactated Ringer's (Ringers, Lactated) Confirm Administered Dose 1,000 mls @ as directed .ROUTE .STK-MED ONE Stop: 01/14/18 14:06 Ondansetron HCl 4 mg/ Sodium (Chloride) 52 mls @ 100 mls/hr IV Q6H PRN PRN Reason: Nausea Iodine (Iodine 2% Mild Tincture) Confirm Administered Dose 30 ml .ROUTE .STK- MED ONE Stop: 01/14/18 10:22 Last Admin: 01/14/18 13:26 Dose: 18 ml Ketorolac Tromethamine (Toradol) 15 mg IVPUSH ONETIME ONE Stop: 01/15/18 00:22 Last Admin: 01/15/18 00:32 Dose: 15 mg Lidocaine/Sodium Bicarbonate (Buffered Lidocaine 1% In Ns 8.4%) 0.25 ml IDERM ONETIME PRN PRN Reason: Prior to IV Start Stop: 01/14/18 18:00 Last Admin: 01/14/18 10:14 Dose: 0.25 ml Magnesium Hydroxide (Milk Of Magnesia) 30 ml PO BID PRN PRN Reason: Constipation Midazolam HCl (Versed 1 Mg/Ml) Confirm Administered Dose 2 mg .ROUTE .STK-MED ONE Stop: 01/14/18 10:33 Morphine Sulfate (Morphine) 2 mg IVPUSH Q2H PRN PRN Reason: Breakthrough Pain Last Admin: 01/14/18 23:28 Dose: 2 mg Naloxone HCl (Narcan) 0.1 mg IVPUSH Q5M PRN PRN Reason: Oversedation Ondansetron HCl (Zofran) Confirm Administered Dose 4 mg .ROUTE .STK-MED ONE Stop: 01/14/18 09:04 Ondansetron HCl (Zofran) 4 mg IVPUSH ONETIME PRN PRN Reason: Nausea/Vomiting Stop: 01/14/18 18:00 Ondansetron HCl (Zofran) 4 mg IVPUSH Q6H PRN PRN Reason: NAUSEA Last Admin: 01/15/18 00:16 Dose: 4 mg Oxycodone HCl (Oxycontin) 10 mg PO ONETIME ONE Stop: 01/14/18 09:49 Last Admin: 01/14/18 10:48 Dose: 10 mg Oxycodone HCl (Oxycodone) 5 mg PO Q6H PRN PRN Reason: Pain (severe 7-10) Last Admin: 01/15/18 14:13 Dose: 5 mg Oxycodone/Acetaminophen (Percocet 325-5 Mg) 1 - 2 tab PO Q4H PRN PRN Reason: Pain Last Admin: 01/15/18 10:14 Dose: 2 tab Pregabalin (Lyrica) 50 mg PO NOW STA Stop: 01/14/18 09:48 Last Admin: 01/14/18 10:48 Dose: 50 mg Propofol (Diprivan 20 Ml) Confirm Administered Dose 200 mg .ROUTE .STK-MED ONE Stop: 01/14/18 09:04 Rocuronium [place] (Zemuron) Confirm Administered Dose 50 mg .ROUTE .STK-MED ONE Stop: 01/14/18 09:04 Ropivacaine (Naropin 0.5%) Confirm Administered Dose 30 ml .ROUTE .STK-MED ONE Stop: 01/14/18 07:11 Rosuvastatin Calcium (Crestor) 20 mg PO DAILY [facility] Last Admin: 01/15/18 08:47 Dose: 20 mg Senna (Senna) 8.6 mg PO BID PRN PRN Reason: Constipation Sodium Chloride (Saline Flush) 10 ml FLUSH ASDIRECTED PRN PRN Reason: Keep Vein Open Stop: 01/14/18 18:00 Tranexamic Acid (Cyklokapron) Confirm Administered Dose 1,000 mg .ROUTE .STK- MED ONE Stop: 01/14/18 10:21 Last Admin: 01/14/18 13:25 Dose: 1,000 mg Vancomycin HCl (Vancomycin) Confirm Administered Dose 1 gm .ROUTE .STK-MED ONE Stop: 01/14/18 10:22 Last Admin: 01/14/18 13:45 Dose: 1 gm Vancomycin HCl (Vancomycin) Confirm Administered Dose 1 gm .ROUTE .STK-MED ONE Stop: 01/14/18 11:52
--- NOTE | 2018-01-22 06:47 | PCM.OPNOTE ---
- General Post-Op/Procedure Note Date of Surgery/Procedure: 01/14/18 Operative Procedure(s): left reverse total shoulder arthroplasty Pre Op Diagnosis: left shoulder rotator cuff tear arthropathy Post-Op Diagnosis: Same Anesthesia Technique: General ET Tube, Regional Block Primary Surgeon: Jose Hong Anesthesia Provider: Elicia Odonnell Rolling Mill Plugger: Gladis Dunn Rolling Mill Plugger: Ledy Rodarte EBL in mLs: 500 Complications: None Condition: Good
--- NOTE | 2018-01-22 07:33 | OR ---
DATE OF OPERATION: 01/14/2018 SURGEON: Jose Hong MD OPERATION PERFORMED: left reverse total shoulder arthroplasty. PREOPERATIVE DIAGNOSIS: Left shoulder rotator cuff tear arthropathy. POSTOPERATIVE DIAGNOSIS: Left shoulder rotator cuff tear arthropathy. ANESTHESIA: General endotracheal intubation with regional interscalene block. ANESTHESIA PROVIDER: Elicia Odonnell. ASSISTANTS: Gladis Dunn PA-C and Ledy Rodarte LPN. ESTIMATED BLOOD LOSS: 500 mL. COMPLICATIONS: None. CONDITION: Stable. DESCRIPTION OF PROCEDURE: The patient was identified in the preoperative holding area. Proper site was marked and identified by the surgeon. The patient was taken back to the operating theater, where after adequate anesthesia, the patient was placed supine on the radiolucent table. The left shoulder was then sterilely prepped and draped in the usual sterile fashion. OR time-out was performed. The patient received 2 g IV Ancef. The bed was then placed in a reverse Trendelenburg position. Standard deltopectoral incision was made. The cephalic vein was then identified and was retracted laterally. The deltopectoral interval was then cleared of soft tissue. This was taken down to the clavipectoral fascia. The clavipectoral fascia was incised. The conjoined tendon was then retracted medially and the deltoid was retracted laterally. The anterior humeral circumflex vessels were then identified and ligated using 0 Vicryl stick tie. The biceps tendon was then identified and a subpectoral tenodesis was performed. Curved James scissor was then used for release of the bicipital groove and interval all the way back up to the level of the glenoid and the biceps tenotomy was performed from the level of the tenodesis proximally. At this time, takedown of the subscapularis tendon was then done after #2 FiberWire tag stitch was placed in the upper outer corner. The humeral head was then dislocated. The rotator cuff was noted to have significant peel- back with near complete tear of the supraspinatus. At this time, a guidepin was placed down the canal. The cutting guide for the head was placed in 30 degrees retroversion and the head cut was then completed. It was decided that we would do a reverse total shoulder arthroplasty. Attention was turned to the glenoid. Then at this time, posterior and anterior retractors were then placed and removal of the labrum and soft tissues were done circumferentially around the glenoid. Guidepin was then placed in a center- center position and the central reamer was then used for small baseplate and then the peripheral reamer was used for small baseplate. It was found to have adequate coverage of the glenoid. At this time, a small glenoid baseplate was impacted into place and a central nonlocking screw was placed. The patient's bone quality was noted to be significantly good with very sclerotic bone. A superior and inferior 6.5 mm locking screw were then placed and found to have adequate purchase. At this time, attention was turned back to the humerus starting with size 5 broach. I was able to broach up to a size 7 which was found to be rotationally and vertically stable. Trial components were placed and a 36 plus 4 trial component was then placed. At this time, the shoulder was reduced. With use of C-arm fluoroscopy, the patient's shoulder was brought through range of motion. All the implants were found to be seated well with no signs of liftoff or loosening. The patient had full range of motion with no signs of instability. At this time, a size 7 Arthrex stem was constructed on the back table for 135 degrees angle and then was impacted into place. The patient at 36 plus 4 mm Glenosphere was then impacted into place onto the baseplate and a +3 mm liner was impacted into place. The patient's shoulder was reduced. It was found to be stable throughout range of motion with no signs of loosening or subsidence. At this time, 1 L dilute Betadine solution was then irrigated through the shoulder along with 3 L pulse lavage irrigation with Ancef. Topical vancomycin powder as well as tranexamic acid was then placed. A #2 FiberWire was used for closure of the deltopectoral interval, 2-0 Vicryl was used subcutaneously and Prineo was used for the skin. The patient was placed in sterile soft dressing and a pillow sling and was sent to PACU in stable condition. MMSHANEL /[id number]
== END 2018-01-15 14:39 | disposition home or self-care (01) | DRG 483 ==
LOC: JD.SDS 08:46 → EDSTATUS 13:45 → JD.MS 13:56
PROVIDERS: ADMIT Orthopaedic Surgery; ATTEND Orthopaedic Surgery
PROC: 0RRK00Z Replacement of Left Shoulder Joint with Reverse Ball and Socket Synthetic Substitute, Open Approach (ICD-10-PCS; principal; 2018-01-14)
PROC: 3E0T3BZ Introduction of Anesthetic Agent into Peripheral Nerves and Plexi, Percutaneous Approach (ICD-10-PCS; 2018-01-14)
DX: M19.012 Primary osteoarthritis, left shoulder (principal); M75.102 Unspecified rotator cuff tear or rupture of left shoulder, not specified as traumatic; E66.9 Obesity, unspecified; E11.22 Type 2 diabetes mellitus with diabetic chronic kidney disease; N18.3 Chronic kidney disease, stage 3 (moderate); F43.12 Post-traumatic stress disorder, chronic; F32.9 Major depressive disorder, single episode, unspecified; F41.9 Anxiety disorder, unspecified; E78.2 Mixed hyperlipidemia; G89.29 Other chronic pain; I12.9 Hypertensive chronic kidney disease with stage 1 through stage 4 chronic kidney disease, or unspecified chronic kidney disease; L85.3 Xerosis cutis; L28.0 Lichen simplex chronicus; M51.37 Other intervertebral disc degeneration, lumbosacral region; H91.90 Unspecified hearing loss, unspecified ear; E11.40 Type 2 diabetes mellitus with diabetic neuropathy, unspecified; G47.33 Obstructive sleep apnea (adult) (pediatric); K21.9 Gastro-esophageal reflux disease without esophagitis; J30.9 Allergic rhinitis, unspecified; Z85.828 Personal history of other malignant neoplasm of skin; Z96.651 Presence of right artificial knee joint; Z98.1 Arthrodesis status; Z87.891 Personal history of nicotine dependence; Z79.82 Long term (current) use of aspirin; Z79.899 Other long term (current) drug therapy
CPT/HCPCS: 01638; 36415; 64415; 73020-26-LT; 73020-LT; 76000; 76000-26; 80053; 82962; 85027; 85610; 85730; 87641; 97110-GP; 97140-GP; 97161-GP; 97165-GO; 97535-GO; A9270-GY; C1713; C1776; J0171; J0690; J1100; J1885; J2001; J2250; J2270; J2405; J2704; J2795; J3010; J3370; J3490; J7030; J7120

== ENCOUNTER 2019-12-23 12:57 | Emergency (ER) | payer OTHER ==
[2019-12-23 13:18] VITALS: PULSE 70
[2019-12-23] MEDS ORDERED: Sodium Chloride 0.9% 10 ML Syringe FLUSH PRN (13:35)
[2019-12-23] MEDS ORDERED: diphenhydrAMINE 50 MG/ML SDV IVPUSH ONE (13:36)
[2019-12-23] MEDS ORDERED: Ketorolac 30 MG/ML SDV IVPUSH ONE (13:36)
[2019-12-23] MEDS ORDERED: Prochlorperazine 10 MG/2 ML SDV IVPUSH ONE (13:36)
--- NOTE | 2019-12-23 14:34 | EDM.PDOC ---
ED HPI GENERAL MEDICAL PROBLEM - General Chief Complaint: Neuro Symptoms/Deficits Stated Complaint: HEADACHES/DIZZINESS Time Seen by Provider: 12/23/19 13:19 Source of Information: Reports: Patient, Family History Limitations: Reports: No Limitations - History of Present Illness INITIAL COMMENTS - FREE TEXT/NARRATIVE: The patient presents with a headache. He says this started a few days ago. About a month ago he slipped on some ice and hit his head on a skid steer. He had some balance issues after that. He is also recovering from knee surgery in 2019. He has no vision changes. He has no numbness or weakness. He has no fever, chills, cough, chest pain, shortness of breath or abdominal pain. He does have some nausea at times. He has never had headaches like this. Onset: Gradual Duration: Day(s): Location: Reports: Head Quality: Reports: Sharp Severity: Severe Improves with: Reports: None Worsens with: Reports: None Associated Symptoms: Reports: Headaches, Nausea/Vomiting. Denies: Chest Pain, Cough, Fever/Chills, Shortness of Breath Left Forehead Pain Score (Numeric/FACES): 4 - Related Data Allergies Allergy/AdvReac Type Severity Reaction Status Date / Time No Known Allergies Allergy Verified 12/23/19 13:18 Home Meds: Home Meds Doxazosin [Cardura] 2 mg PO BEDTIME 01/11/18 [History] Escitalopram [Lexapro] 10 mg PO DAILY 01/11/18 [History] Rosuvastatin Calcium [Crestor] 20 mg PO DAILY 01/11/18 [History] glipiZIDE [Glipizide Xl] 2.5 mg PO BID 01/11/18 [History] Amoxicillin 875 mg PO BID #20 tab 12/23/19 [Rx] Aspirin [Ecotrin EC] 325 mg PO BID PRN 12/23/19 [History] Lisinopril [Zestril] 0 mg PO DAILY 12/23/19 [History] traMADol [Ultram] 50 mg PO Q6H PRN #20 tab 12/23/19 [Rx] Past Medical History HEENT History: Reports: Hard of Hearing, Sinusitis Other HEENT History: open wound of nasal septum, has hearing aids, not here Cardiovascular History: Reports: High Cholesterol, Hypertension Respiratory History: Reports: Sleep Apnea Other Respiratory History: uses CPAP Gastrointestinal History: Reports: Diverticulosis Other Genitourinary History: CKD III,hypogonadism [employer] History: Reports: None Musculoskeletal History: Reports: Back Pain, Chronic Other Musculoskeletal History: shoulder pain, joinht pain, onychia and paronychia of toe, spondlydosis of lumbar sacral area, 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 Neurological History: Reports: Neuropathy, Diabetic Psychiatric History: Reports: Anxiety, Depression, PTSD Endocrine/Metabolic History: Reports: Diabetes, Type II, Obesity/BMI 30+ Other Endocrine/Metabolic History: hypogonadism Hematologic History: Reports: Other (See Below) Other Hematologic History: hyperkalemia Immunologic History: Reports: None Oncologic (Cancer) History: Reports: Basal Cell Carcinoma, Squamous Cell Carcinoma Dermatologic History: Reports: None Other Dermatologic History: actinic keratosis - Infectious Disease History Infectious Disease History: Reports: Chicken Pox, Measles, Mumps, Pertussis ( Whooping Cough) - Past Surgical History HEENT Surgical History: Reports: Cataract Surgery, Naso-Sinus Surgery Cardiovascular Surgical History: Reports: None Respiratory Surgical History: Reports: None GI Surgical History: Reports: Appendectomy, Colonoscopy Male Surgical History: Reports: None Endocrine Surgical History: Reports: None Neurological Surgical History: Reports: C-Spine, Lumbar Spine Musculoskeletal Surgical History: Reports: Knee Replacement Other Musculoskeletal Surgeries/Procedures:: right knee replaced and left knee replaced twice Social & Family History - Family History Cardiac: Reports: [place], Other (See Below) Other Cardiac Family History: Fluid around heart - siblings Neurological: Reports: Alzheimers Disease - Tobacco Use Smoking Status *Q: Never Smoker Second Hand Smoke Exposure: No - Caffeine Use Caffeine Use: Reports: Coffee - Recreational Drug Use Recreational Drug Use: No ED ROS GENERAL - Review of Systems Review Of Systems: See Below Constitutional: Reports: No Symptoms HEENT: Reports: No Symptoms Respiratory: Reports: No Symptoms Cardiovascular: Reports: No Symptoms Endocrine: Reports: No Symptoms GI/Abdominal: Reports: Nausea. Denies: Abdominal Pain, Vomiting : Reports: No Symptoms Musculoskeletal: Reports: No Symptoms Neurological: Reports: Dizziness (at times), Headache ED EXAM, NEURO - Physical Exam Exam: See Below Exam Limited By: No Limitations General Appearance: Alert, No Apparent Distress Ears: Normal External Exam Nose: Normal Inspection Head Exam: Atraumatic, Normocephalic Neck: Normal Inspection Respiratory/Chest: No Respiratory Distress, Lungs Clear, Normal Breath Sounds Cardiovascular: Regular Rate, Rhythm, No Edema, No Murmur GI/Abdominal: Soft, Non-Tender, No Organomegaly, No Mass Neurological: Alert, No Motor/Sensory Deficits, Oriented x 3 Course - Vital Signs Last Recorded V/S: Last Vital Signs Temp 97.7 F 12/23/19 13:10 Pulse 70 12/23/19 13:10 Resp 14 12/23/19 13:10 BP 143/59 H 12/23/19 13:10 Pulse Ox 98 12/23/19 13:10 - Orders/Labs/Meds Orders: Active Orders 24 hr Category Date Time Status Peripheral IV Care [RC] . DIRECTED Care 12/23/19 13:35 Active Sodium Chloride 0.9% [Saline Flush] Med 12/23/19 13:35 Active 10 ml FLUSH ASDIRECTED PRN Peripheral IV Insertion Adult [OM.PC] Routine Oth 12/23/19 13:35 Ordered Medication Orders Sodium Chloride (Saline Flush) 10 ml FLUSH ASDIRECTED PRN PRN Reason: Keep Vein Open Last Admin: 12/23/19 13:35 Dose: 10 ml Meds: Medications Generic Name Dose Route Start Last Admin Trade Name Freq PRN Reason Stop Dose Admin Sodium Chloride 10 ml 12/23/19 13:35 12/23/19 13:35 Saline Flush FLUSH 10 ml ASDIRECTED PRN Administration Keep Vein Open Discontinued Medications Generic Name Dose Route Start Last Admin Trade Name Freq PRN Reason Stop Dose Admin Diphenhydramine HCl 50 mg 12/23/19 13:36 12/23/19 13:45 Benadryl IVPUSH 12/23/19 13:37 50 mg ONETIME ONE Administration Ketorolac Tromethamine 30 mg 12/23/19 13:36 12/23/19 13:43 Toradol IVPUSH 12/23/19 13:37 30 mg ONETIME ONE Administration Prochlorperazine Edisylate 10 mg 12/23/19 13:36 12/23/19 13:40 Compazine IVPUSH 12/23/19 13:37 10 mg ONETIME ONE Administration - Re-Assessments/Exams Free Text/Narrative Re-Assessment/Exam: 12/23/19 14:33 I ordered an IV saline lock, compazine 10mg IV, toradol 30mg IV, benadryl 50mg IV and a CT of his head. 12/23/19 14:[address] of his head shows senescent change as noted above. Slightly prominent sinus findings which most likely represents chronic sinusitis. No acute intracranial abnormality is appreciated. I will get her on some amoxicillin for the sinusitis. Departure - Departure Time of Disposition: 14:45 Disposition: Home, Self-Care 01 Condition: Good Clinical Impression: Sinusitis Qualifiers: Sinusitis location: frontal Chronicity: acute Recurrence: non-recurrent Qualified Code(s): J01.10 - Acute frontal sinusitis, unspecified Headache Qualifiers: Headache type: unspecified Headache chronicity pattern: acute headache Intractability: not intractable Qualified Code(s): R51 - Headache - Discharge Information *PRESCRIPTION DRUG MONITORING PROGRAM REVIEWED*: Not Applicable *COPY OF PRESCRIPTION DRUG MONITORING REPORT IN PATIENT MARTHA: Not Applicable Prescriptions: Amoxicillin 875 mg PO BID #20 tab traMADol [Ultram] 50 mg PO Q6H PRN #20 tab PRN Reason: Pain Referrals: Karina Cain MD [Primary Care Provider] - 1 Week Forms: ED Department Discharge Additional Instructions: Take the amoxicillin 2 times per day for 10 days. Take tylenol or motrin for pain. If that does not work, try the ultram every 6 hours. Please return if you are worse. Sepsis Event Note - Evaluation Sepsis Screening Result: No Definite Risk - Focused Exam Vital Signs: Vital Signs Temp Pulse Resp BP Pulse Ox 12/23/19 13:10 97.7 F 70 14 143/59 H 98 Date Exam was Performed: 12/23/19 Time Exam was Performed: 14:42 - My Orders Last 24 Hours: My Active Orders 12/23/19 13:35 Peripheral IV Care [RC] . DIRECTED Sodium Chloride 0.9% [Saline Flush] 10 ml FLUSH ASDIRECTED PRN Peripheral IV Insertion Adult [OM.PC] Routine - Assessment/Plan Last 24 Hours: My Active Orders 12/23/19 13:35 Peripheral IV Care [RC] . DIRECTED Sodium Chloride 0.9% [Saline Flush] 10 ml FLUSH ASDIRECTED PRN Peripheral IV Insertion Adult [OM.PC] Routine
--- NOTE | 2019-12-23 14:35 | CT ---
Head CT Technique: Multiple axial sections through the brain were obtained. Intravenous contrast was not utilized. Comparison: No prior intracranial imaging is available. Findings: Ventricles along with basal cisterns and sulci over the convexities are mildly prominent. Soft tissue density is noted within the left side of the sphenoid sinus most likely due to chronic mucosal thickening. Increased density is also noted within the visualized upper right maxillary sinus as well as portions of the ethmoid sinuses likely representing additional chronic sinusitis. Mastoid sinuses that are seen appear clear. No acute calvarial abnormality is seen. No abnormal parenchymal densities are seen. No evidence of intracranial hemorrhage is seen. No midline shift or mass effect is appreciated. Mild atherosclerotic calcification is seen within the carotid siphon. Impression: 1. Senescent change as noted above. 2. Slightly prominent sinus findings which most likely represents chronic sinusitis. 3. No acute intracranial abnormality is appreciated. Diagnostic code #3 Study was dictated in MDT
[2019-12-23 15:17] VITALS: BP 101/85
== END 2019-12-23 15:12 | disposition home or self-care (01) ==
LOC: JD.ED 12:57
DX: J01.10 Acute frontal sinusitis, unspecified (principal); I12.9 Hypertensive chronic kidney disease with stage 1 through stage 4 chronic kidney disease, or unspecified chronic kidney disease; E11.22 Type 2 diabetes mellitus with diabetic chronic kidney disease; N18.3 Chronic kidney disease, stage 3 (moderate); E11.40 Type 2 diabetes mellitus with diabetic neuropathy, unspecified; E78.00 Pure hypercholesterolemia, unspecified; E66.9 Obesity, unspecified; Z68.37 Body mass index [BMI] 37.0-37.9, adult; Z79.84 Long term (current) use of oral hypoglycemic drugs; Z79.82 Long term (current) use of aspirin; Z79.899 Other long term (current) drug therapy
CPT/HCPCS: 70450; 96374; 96375; 99284; J0780; J1200; J1885

== ENCOUNTER 2020-12-05 09:51 | Emergency (ER) | payer OTHER ==
[2020-12-05 10:13] VITALS: BP 166/78; PULSE 71
--- NOTE | 2020-12-05 10:40 | EDM.PDOC ---
ED HPI GENERAL MEDICAL PROBLEM - General Chief Complaint: Neck Problem Stated Complaint: NECK PAIN Time Seen by Provider: 12/05/20 10:30 - History of Present Illness INITIAL COMMENTS - FREE TEXT/NARRATIVE: 75-year-old male presents the emergency room with neck pain. Yesterday morning after awakening he noticed he had some neck discomfort. He gradually developed to the point where he can hardly move his neck. He is not any fevers or chills. He figured he just slept on it wrong yesterday. He has not tried anything for pain relief. Patient has a history of having a prior neck fusion. He denies any history of trauma to the head or neck, however, he states he did fall about a month ago but did fine after this. Patient has not had any recent medication changes and is otherwise doing okay. Neck Pain Score (Numeric/FACES): 8 - Related Data Allergies Allergy/AdvReac Type Severity Reaction Status Date / Time No Known Allergies Allergy Verified 12/05/20 10:13 Home Meds: Home Meds Doxazosin [Cardura] 2 mg PO BEDTIME 01/11/18 [History] Escitalopram [Lexapro] 10 mg PO DAILY 01/11/18 [History] Rosuvastatin Calcium [Crestor] 20 mg PO DAILY 01/11/18 [History] glipiZIDE [Glipizide Xl] 2.5 mg PO BID 01/11/18 [History] Aspirin [Ecotrin EC] 325 mg PO BID PRN 12/23/19 [History] lisinopriL [Zestril] 10 mg PO DAILY 12/23/19 [History] Past Medical History HEENT History: Reports: Hard of Hearing, Sinusitis Other HEENT History: open wound of nasal septum, has hearing aids, not here Cardiovascular History: Reports: High Cholesterol, Hypertension Respiratory History: Reports: Sleep Apnea Other Respiratory History: uses CPAP Gastrointestinal History: Reports: Diverticulosis Other Genitourinary History: CKD III,hypogonadism [employer] History: Reports: None Musculoskeletal History: Reports: Back Pain, Chronic Other Musculoskeletal History: shoulder pain, joinht pain, onychia and paronychia of toe, spondlydosis of lumbar sacral area, 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 Neurological History: Reports: Neuropathy, Diabetic Psychiatric History: Reports: Anxiety, Depression, PTSD Endocrine/Metabolic History: Reports: Diabetes, Type II, Obesity/BMI 30+ Other Endocrine/Metabolic History: hypogonadism Hematologic History: Reports: Other (See Below) Other Hematologic History: hyperkalemia Immunologic History: Reports: None Oncologic (Cancer) History: Reports: Basal Cell Carcinoma, Squamous Cell Carcinoma Dermatologic History: Reports: None Other Dermatologic History: actinic keratosis - Infectious Disease History Infectious Disease History: Reports: Chicken Pox, Measles, Mumps, Pertussis (Whooping Cough) - Past Surgical History HEENT Surgical History: Reports: Cataract Surgery, Naso-Sinus Surgery Cardiovascular Surgical History: Reports: None Respiratory Surgical History: Reports: None GI Surgical History: Reports: Appendectomy, Colonoscopy Male Surgical History: Reports: None Endocrine Surgical History: Reports: None Neurological Surgical History: Reports: C-Spine, Lumbar Spine Musculoskeletal Surgical History: Reports: Knee Replacement Other Musculoskeletal Surgeries/Procedures:: right knee replaced and left knee replaced twice Social & Family History - Family History Cardiac: Reports: [place], Other (See Below) Other Cardiac Family History: Fluid around heart - siblings Neurological: Reports: Alzheimers Disease - Tobacco Use Tobacco Use Status *Q: Never Tobacco User - Caffeine Use Caffeine Use: Reports: None - Recreational Drug Use Recreational Drug Use: No ED ROS GENERAL - Review of Systems Review Of Systems: See Below Constitutional: Reports: No Symptoms HEENT: Reports: No Symptoms Respiratory: Reports: No Symptoms Cardiovascular: Reports: No Symptoms Endocrine: Reports: No Symptoms GI/Abdominal: Reports: No Symptoms Musculoskeletal: Reports: Neck Pain, Other (He has some right shoulder discomfort but this is been an ongoing issue and he is actually going to physical therapy for this.) Neurological: Reports: No Symptoms Psychiatric: Reports: No Symptoms ED EXAM, GENERAL - Physical Exam Exam: See Below Exam Limited By: No Limitations General Appearance: Alert, No Apparent Distress Head: Atraumatic, Normocephalic Neck: Tender Lateral, Tender Midline, Other (He has bilateral paraspinous muscles tenderness and tightness noted.) Respiratory/Chest: No Respiratory Distress, Lungs Clear, Normal Breath Sounds Cardiovascular: Regular Rate, Rhythm, No Edema, Systolic Murmur (He has an early systolic murmur seems to be mostly resolved by mid systole this is heard best in the left lower sternal border) GI/Abdominal: Normal Bowel Sounds, Soft, Non-Tender Course - Vital Signs Last Recorded V/S: Last Vital Signs Temp 36.9 C 12/05/20 10:09 Pulse 71 12/05/20 10:09 Resp 12 12/05/20 10:09 BP 166/78 H 12/05/20 10:09 Pulse Ox 100 12/05/20 10:09 - Orders/Labs/Meds Meds: Medications Discontinued Medications Generic Name Dose Route Start Last Admin Trade Name Yessica PRN Reason Stop Dose Admin Acetaminophen 975 mg 12/05/20 10:42 12/05/20 11:01 Tylenol PO 12/05/20 10:43 975 mg ONETIME ONE Administration - Re-Assessments/Exams Free Text/Narrative Re-Assessment/Exam: 12/05/20 12:10 C-spine x-rays are negative for acute fracture dislocation prior hardware is seen no apparent issues with this. The patient has noticed some improvement from the Tylenol but he still has some discomfort. We have discussed this and the patient will continue to use the Tylenol 1000 mg 4 times a day. Departure - Departure Time of Disposition: 12:15 Disposition: Home, Self-Care 01 Clinical Impression: Cervical strain, acute - Discharge Information Referrals: Karina Cain MD [Primary Care Provider] - Forms: ED Department Discharge Additional Instructions: Return to the emergency room with any questions problems or worsening symptoms. For your neck strain use Tylenol 1000 mg every 6 hours or 4 times a day. Do not exceed 4 times a day you can picking tech some Tylenol extra strength this is usually 500 mg take 2 of these 4 times daily do not exceed more than 8 tablets in a 24- hour period. Follow-up in the [place] [facility] for recheck on Sunday or . Sepsis Event Note (ED) - Evaluation Sepsis Screening Result: No Definite Risk - Focused Exam Vital Signs: Vital Signs Temp Pulse Resp BP Pulse Ox 12/05/20 10:09 36.9 C 71 12 166/78 H 100
[2020-12-05] MEDS ORDERED: Acetaminophen 325 MG/10.15 ML ML PO ONE (10:42)
--- NOTE | 2020-12-05 11:41 | CR ---
Cervical spine: AP, lateral and odontoid views of the cervical spine were obtained. Comparison: No prior cervical spine imaging is available. There is mild disc space narrowing at C3-4 and severe disc space narrowing at C4-5. Both levels show very slight posterior spurring and more prominent anterior spurring. There is anterior plate and screws noted at C5-6 and C6-7 with intervertebral bone grafts. Slight spurring is noted within the uncovertebral joints at C3-4 and C4-5. Minimal scoliosis is noted. No acute fracture or subluxation is seen. Impression: 1. Previous surgery at C5-6 and C6-7. 2. Degenerative change as noted above. 3. Slight scoliosis. Diagnostic code #2
== END 2020-12-05 12:30 | disposition home or self-care (01) ==
LOC: JD.ED 09:51
DX: S16.1XXA Strain of muscle, fascia and tendon at neck level, initial encounter (principal); E78.00 Pure hypercholesterolemia, unspecified; I12.9 Hypertensive chronic kidney disease with stage 1 through stage 4 chronic kidney disease, or unspecified chronic kidney disease; N18.30 Chronic kidney disease, stage 3 unspecified; E11.40 Type 2 diabetes mellitus with diabetic neuropathy, unspecified; E11.22 Type 2 diabetes mellitus with diabetic chronic kidney disease; E66.9 Obesity, unspecified; Z68.36 Body mass index [BMI] 36.0-36.9, adult; Z79.82 Long term (current) use of aspirin; Z79.84 Long term (current) use of oral hypoglycemic drugs; X58.XXXA Exposure to other specified factors, initial encounter
CPT/HCPCS: 72040; 99283; A9270; 99282

== ENCOUNTER 2022-09-30 17:39 | Emergency (ER) | payer OTHER ==
[2022-09-30 18:22] VITALS: BP 141/63; PULSE 80
[2022-09-30] MEDS ORDERED: Sodium Chloride 0.9% 10 ML Syringe FLUSH PRN (18:26)
[2022-09-30] MEDS ORDERED: Lactated Ringers 500 ML IV ONE (19:01)
[2022-09-30 19:54] LABS: ESTIMATED GFR 57 mL/min (>60)
[2022-09-30 21:35] LABS: CORONAVIRUS COVID-19 NAA POSITIVE (NEGATIVE)
[2022-09-30] MEDS ORDERED: Benzonatate 100 MG Cap PO ONE (21:49)
== END 2022-09-30 23:39 | disposition home or self-care (01) ==
LOC: JD.ED 17:39
DX: U07.1 COVID-19 (principal); E78.00 Pure hypercholesterolemia, unspecified; I12.9 Hypertensive chronic kidney disease with stage 1 through stage 4 chronic kidney disease, or unspecified chronic kidney disease; E11.22 Type 2 diabetes mellitus with diabetic chronic kidney disease; N18.30 Chronic kidney disease, stage 3 unspecified; E11.40 Type 2 diabetes mellitus with diabetic neuropathy, unspecified; E66.9 Obesity, unspecified; Z79.82 Long term (current) use of aspirin; Z79.84 Long term (current) use of oral hypoglycemic drugs; Z79.899 Other long term (current) drug therapy
CPT/HCPCS: 0240U; 36415; 71045; 80053; 83605; 83735; 83880; 85025; 85379; 86140; 93005; 96360; 96361; 99284; A9270; J3490; J7120

== ENCOUNTER 2022-12-19 16:00 | Emergency (ER) | payer OTHER ==
[2022-12-19 16:30] VITALS: BP 140/73; PULSE 75
== END 2022-12-19 17:40 | disposition home or self-care (01) ==
LOC: JD.ED 16:00
DX: M25.562 Pain in left knee (principal); F32.A Depression, unspecified; E78.00 Pure hypercholesterolemia, unspecified; I12.9 Hypertensive chronic kidney disease with stage 1 through stage 4 chronic kidney disease, or unspecified chronic kidney disease; E11.22 Type 2 diabetes mellitus with diabetic chronic kidney disease; N18.9 Chronic kidney disease, unspecified; E66.01 Morbid (severe) obesity due to excess calories; Z68.35 Body mass index [BMI] 35.0-35.9, adult; Z86.16 Personal history of COVID-19; Z79.84 Long term (current) use of oral hypoglycemic drugs; Z79.899 Other long term (current) drug therapy
CPT/HCPCS: 99283

== ENCOUNTER 2025-03-17 16:06 | Emergency (ER) | payer OTHER ==
[2025-03-17 18:04] VITALS: BP 130/85; PULSE 100
== END 2025-03-17 18:03 | disposition home or self-care (01) ==
LOC: JD.ED 16:06
DX: M25.562 Pain in left knee (principal); M25.551 Pain in right hip; M25.552 Pain in left hip; E78.00 Pure hypercholesterolemia, unspecified; I12.9 Hypertensive chronic kidney disease with stage 1 through stage 4 chronic kidney disease, or unspecified chronic kidney disease; E11.22 Type 2 diabetes mellitus with diabetic chronic kidney disease; N18.9 Chronic kidney disease, unspecified; E66.9 Obesity, unspecified; Z86.16 Personal history of COVID-19; Z79.899 Other long term (current) drug therapy; Z79.84 Long term (current) use of oral hypoglycemic drugs; W01.0XXA Fall on same level from slipping, tripping and stumbling without subsequent striking against object, initial encounter
CPT/HCPCS: 72170; 72170-26; 735602650; 73560-50; 99283; 99284